=== PATIENT | female | born 1950 | race Caucasian/White ===

== ENCOUNTER 2016-08-10 08:55 | Observation (INO) | payer MEDICARE, OTHER ==
[~2016-08-10] VITALS: Ht 154.9 cm; Wt 98.9 kg
[2016-08-10] MEDS ORDERED: morphine 4 MG/ML VIAL IV STA (09:16)
[2016-08-10] MEDS ORDERED: ONDANSETRON 4 MG INJ IV STA (09:16)
[2016-08-10] MEDS ORDERED: ASPIRIN 325 MG TAB PO STA (09:16)
[2016-08-10] MEDS ORDERED: NITROGLYCERIN 2% 1 GM OINT PKT TD STA (09:16)
[2016-08-10] MEDS ORDERED: ACET-2047 PO (09:29)
[2016-08-10] MEDS ORDERED: ZOLP5TAB PO (09:30)
--- NOTE | 2016-08-10 09:32 | ERA ---
ER Documentation Chief Complaint Date/Time DATE: 08/10/16 TIME: 09:30 Chief Complaint per ems c/p cp HPI This is 66-year-old female with a history of hypertension, COPD, CHF who is in rehab right now at a halfway status post septic shock. The patient says she has never been in this hospital before. Patient states that 330 this morning she developed some substernal chest pressure with radiation into the right jaw. She states she had no shortness of breath palpitations dizziness syncope. Patient states that she has had four cardiac caths that show minimal plaque in her last one was 4 years ago. She says currently her chest pain is minimal. She denies any cough dysuria fever abdominal pain back pain ROS All systems reviewed and are negative except as per history of present illness. Medications Home Meds Reported Medications Magnesium Hydroxide* (Milk Of Magnesia*) 400 Mg/5 Ml Oral.susp, 30 ML PO DAILY Y for HEARTBURN, ML 08/10/16 Lidocaine (Lidoderm) 1 Each Adh..patch, 1 EACH TP DAILY APPLY TO RIGHT KNEE 08/10/16 Vancomycin HCl (Vancomycin HCl) 1 Gm Vial, 1.25 GM IV DAILY, VIAL STARTED 08-07-16 STOP 08-21-16 08/10/16 Sertraline Hcl* (Zoloft*) 100 Mg Tablet, 200 MG PO DAILY, #60 TAB 08/10/16 Ropinirole Hcl* (Ropinirole Hcl*) 1 Mg Tablet, 1 MG PO BID, TAB 08/10/16 Guaifenesin-Dextromethorphan* (Robitussin* DM) 100MG/10MG/5ML Syrup, 5 ML PO Q6H Y for COUGH, ML 08/10/16 Methocarbamol* (Robaxin*) 500 Mg Tab, 500 MG PO Q8, TAB 08/10/16 Prednisone* (Prednisone*) 20 Mg Tab, 20 MG PO BID, TAB 08/10/16 Potassium Chloride* (K-Dur*) 10 Meq Tab.prt.sr, 10 MEQ PO BID, TAB 08/10/16 Famotidine* (Famotidine*) 40 Mg Tablet, 40 MG PO BID, #60 TAB 08/10/16 Oxycodone Hcl* (IR) (Oxycodone Hcl*) 5 Mg Capsule, 5 MG PO Q6 Y for PAIN, CAP 08/10/16 Oxybutynin Chloride* (Ditropan*) 5 Mg Tablet, 5 MG PO TID, TAB 08/10/16 Oxcarbazepine* (Oxcarbazepine*) 600 Mg Tablet, 600 MG PO QHS, TAB 08/10/16 Ondansetron Hcl* (Zofran*) 4 Mg Tablet, 4 MG PO Q6H Y for NAUSEA AND OR VOMITING , TAB 08/10/16 Loperamide Hcl* (Imodium*) 2 Mg Capsule, 2 MG PO Q6H Y for DIARRHEA, CAP MAX 16 mg/day 08/10/16 Ipratropium-Albuterol (Ipratropium-Albuterol) 0.5-3 Mg/3 Ml Ampul.neb, 3 ML INHALATION Q6 Y for WHEEZING AND SOB, #30 VIAL 08/10/16 Lamotrigine* (Lamictal*) 200 Mg Tablet, 200 MG PO BID, TAB 08/10/16 Levothyroxine Sodium* (Levoxyl*) 137 Mcg Tablet, 137 MCG PO BEFORE BREAKFAST, # 30 TAB 08/10/16 Liothyronine Sodium* (Cytomel*) 5 Mcg Tablet, 5 MCG PO DAILY, TAB 08/10/16 Losartan Potassium* (Losartan Potassium*) 50 Mg Tablet, 50 MG PO BID, TAB HOLD IF SBP IS BELOW 110 OR HR BELOW 60 08/10/16 Multivitamins* (Theragran*) 1 Tab Tab, 1 TAB PO DAILY, TAB 08/10/16 Hydrocodone/Acetaminophen ([place] 10-325 Tablet) 1 Each Tablet, 1 EACH PO Q6 Y for PAIN LEVEL 6-10, TAB 08/10/16 Omeprazole* (Omeprazole*) 20 Mg Capsule.dr, 20 MG PO DAILY, #30 CAP 08/10/16 Docusate Sodium* (Docusate Sodium*) 100 Mg Capsule, 100 MG PO BID, #60 CAP 08/10/16 Atorvastatin Calcium* (Atorvastatin Calcium*) 20 Mg Tablet, 20 MG PO QHS, #30 TAB 08/10/16 Fluticasone/Vilanterol (Breo Ellipta 200-25 Mcg INH) 1 Each Blst.w.dev, 1 PUFF INHALATION DAILY, #1 INHALER 08/10/16 Carvedilol* (Carvedilol*) 3.125 Mg Tablet, 3.125 MG PO BID, #60 TAB HLD IF SBP BELOW 110 OR HR BELOW 60 08/10/16 Diphenhydramine Hcl* (Benadryl*) 50 Mg Cap, 50 MG PO Q6 Y for ITCHING, CAP 08/10/16 Lorazepam* (Lorazepam*) 1 Mg Tablet, 1 MG PO TID Y for ANXIETY, #30 TAB GIVEN AT 9 1 AND 5 SEPERATE WITH AMBIEN BY AT LEAST 2 HOURS 08/10/16 Lorazepam* (Lorazepam*) 1 Mg Tablet, 2 MG PO QHS Y for ANXIETY, #30 TAB SEPERATE WITH AMBIEN BY AT LEAST 2 HOURS 08/10/16 Zolpidem Tartrate* (Ambien*) 5 Mg Tablet, 5 MG PO QHS Y for INSOMNIA, #30 TAB 08/10/16 Acetaminophen* (Acetaminophen*) 650 Mg Tablet, 650 MG PO Q4 Y for PAIN AND OR ELEVATED TEMP, #30 TAB MILD PAIN 08/10/16 Allergies Allergies: Coded Allergies: Sulfa (Sulfonamide Antibiotics) (Unverified Allergy, Unknown, 08/10/16) phenobarbital (Verified Allergy, Unknown, 08/10/16) Uncoded Allergies: PLASTIC TAPE (Allergy, Unknown, 08/10/16) PMhx/Soc Medical and Surgical Hx: pt denies Surgical Hx Smoking Status: Never smoker FmHx Family History: No coronary disease Physical Exam Vitals Vital Signs Date Time Temp Pulse Resp B/P Pulse Ox O2 Delivery O2 Flow Rate FiO2 08/10/16 11:23 53 20 121/53 99 Nasal Cannula 3.0 08/10/16 09:31 Nasal Cannula 2 08/10/16 09:07 97.8 62 20 157/84 99 Physical Exam Const: Well-developed, well-nourished Head: Atraumatic, normocephalic Eyes: Normal Conjunctiva, PERRLA, EOMI, normal sclera, no nystagmus ENT: Normal External Ears, Nose and Mouth, moist mucus membranes. Neck: Full range of motion. No meningismus, no lymphadenopathy. Resp: Clear to auscultation bilaterally, no wheezing, rhonchi, rales Cardio: Regular rate and rhythm, no murmurs, S1 S2 present, there is bilateral parasternal chest wall tenderness to palpation however the patient states this is not the same pain Abd: Soft, non tender x 4, non distended. Normal bowel sounds, no guarding or rebound, no pulsitile abdominal masses or bruits Skin: No petechiae or rashes, no ecchymosis , no maculopapular rash Back: No midline or flank tenderness Ext: No cyanosis, or edema, FROM x 4, normal inspection, neurovascularly intact x 4 Neur: Awake and alert, STR 5/5 x 4, sensation intact x 4, no focal findings, cerebellum intact Psych: Normal Mood and Affect Result Diagram: 08/10/1692408/10/16924 Results 24 hrs Laboratory Tests Test 08/10/16 09:25 White Blood Count 8.010^3/ul Red Blood Count 3.3110^6/ul Hemoglobin 9.7g/dl Hematocrit 31.4% Mean Corpuscular Volume 94.9fl Mean Corpuscular Hemoglobin 29.3pg Mean Corpuscular Hemoglobin Concent 30.9g/dl Red Cell Distribution Width 14.3% Platelet Count 33571^3/UL Mean Platelet Volume 10.0fl Neutrophils % 69.9% Lymphocytes % 20.1% Monocytes % 8.3% Eosinophils % 0.8% Basophils % 0.4% Nucleated Red Blood Cells % 0.0/100WBC Neutrophils # 5.610^3/ul Lymphocytes # 1.610^3/ul Monocytes # 0.710^3/ul Eosinophils # 0.110^3/ul Basophils # 0.010^3/ul Nucleated Red Blood Cells # 0.010^3/ul Prothrombin Time 12.8Sec Prothrombin Time Ratio 1.0 INR International Normalized Ratio 0.96 Activated Partial Thromboplast Time 30.5Sec Sodium Level 143mmol/L Potassium Level 4.3mmol/L Chloride Level 115mmol/L Carbon Dioxide Level 29mmol/L Anion Gap 3 Blood Urea Nitrogen 22mg/dl Creatinine 0.74mg/dl Glucose Level 99mg/dl Calcium Level 8.5mg/dl Total Bilirubin 0.0mg/dl Direct Bilirubin 0.00mg/dl Indirect Bilirubin 0.0mg/dl Aspartate Amino Transf (AST/SGOT) 24IU/L Alanine Aminotransferase (ALT/SGPT) 48IU/L Alkaline Phosphatase 60IU/L Troponin I < 0.012ng/ml B-Type Natriuretic Peptide 1070PG/ML Total Protein 5.7g/dl Albumin 3.8g/dl Globulin 1.90g/dl Albumin/Globulin Ratio 2.00 Current Medications Medications (Trade) Dose Ordered Sig/Eliazar Route PRN Reason Start Time Stop Time Status Last Admin Dose Admin Aspirin (Aspirin) 325 mg ONCE STAT PO 08/10/16 09:16 08/10/16 09:18 DC 08/10/16 09:39 Nitroglycerin (Nitroglycerin 2% Oint) 1 inch ONCE STAT TD 08/10/16 09:16 08/10/16 09:18 DC 08/10/16 09:39 Morphine Sulfate (morphine) 4 mg ONCE STAT IV 08/10/16 09:16 08/10/16 09:18 DC 08/10/16 09:40 Ondansetron HCl (Zofran Inj) 4 mg ONCE STAT IV 08/10/16 09:16 08/10/16 09:18 DC 08/10/16 09:40 Procedures/MDM EKG: Rate/Rhythm: Normal Sinus Rhythm,NL intervals QRS, ST, QT: NORMAL KS, QRS, QT] Impression: NORMAL EKG PROCEDURE: XR Chest. CLINICAL INDICATION: Chest pain TECHNIQUE: Single frontal view of the chest was obtained COMPARISON: None FINDINGS: The heart is enlarged. The thoracic aorta is calcified. There is a left-sided PICC line in place with its tip overlying the cavoatrial junction. There is increased right paratracheal density in the right upper lung which may be secondary to tortuous vessels, however a mass is not excluded. There is no pleural effusion or pneumothorax. RPTAT: AA IMPRESSION: Mild cardiomegaly. Calcified aorta consistent with atherosclerotic disease. Increased right paratracheal density is likely secondary to tortuous vessels, however a mass is not excluded and a CT chest is recommended for further evaluation. A call report was made and the findings discussed with Erasmo Palumbo at 08/10/2016 9:48:25 AM. .Александр Styels MD, Date Time Electronically viewed and signed by .Александр Styles MD, on 08/10/2016 09: 51 .S/ CC: ERASMO RUSH DO Patient's symptoms are concerning for cardiac cause will require inpatient workup and continuous monitoring. Further w/u for ischemia, arrhythmia, PE or dissection will be deferred to the inpatient team. Accepting Care Team: Current data and ongoing care discussed. Time: Time of admission Primary Provider: [XOXOXO] Consulting: [XOXOXO] Outstanding Data: none Departure Diagnosis: Primary Impression: Chest pain Qualified Code: R07.9 - Chest pain, unspecified type Condition: Stable ERASMO RUSH DO August 10, 2016 09:32
[2016-08-10 09:34] LABS: ADD SCAN DIFF NO
[2016-08-10] MEDS ORDERED: BEN50 PO (09:35)
[2016-08-10] MEDS ORDERED: LORA1TAB PO ×2 (09:35)
[2016-08-10 09:36] LABS: BASOPHILS % 0.4 % (0.0-2.0); EOSINOPHILS # 0.1 10^3/ul (0.0-0.5); EOSINOPHILS % 0.8 % (0.0-7.0); HEMATOCRIT 31.4 % (37.0-47.0); HEMOGLOBIN 9.7 g/dl (12.0-16.0); LYMPHOCYTES # 1.6 10^3/ul (0.8-2.9); LYMPHOCYTES % 20.1 % (15.0-51.0); MEAN CORPUSCULAR HEMOGLOBIN 29.3 pg (29.0-33.0); MEAN CORPUSCULAR HGB CONC 30.9 g/dl (32.0-37.0); MEAN CORPUSCULAR VOLUME 94.9 fl (82.0-101.0); MONOCYTE # 0.7 10^3/ul (0.3-0.9); MONOCYTES % 8.3 % (0.0-11.0); NEUTROPHIL # 5.6 10^3/ul (1.6-7.5); NEUTROPHILS % 69.9 % (39.0-77.0); PLATELET COUNT 220 10^3/UL (140-415); RED BLOOD COUNT 3.31 10^6/ul (4.20-5.40); RED CELL DISTRIBUTION WIDTH 14.3 % (11.5-14.5)
[2016-08-10] MEDS ORDERED: CARV3.1260 PO (09:37)
[2016-08-10] MEDS ORDERED: FLUT1BLS INHALATION (09:37)
[2016-08-10] MEDS ORDERED: ATOR20TA38 PO (09:37)
[2016-08-10] MEDS ORDERED: DOCU-159 PO (09:38)
[2016-08-10] MEDS ORDERED: OMEP20CA16 PO (09:39)
[2016-08-10] MEDS ORDERED: HYDR-902 PO (09:39)
[2016-08-10] MEDS ORDERED: MULTI PO (09:40)
[2016-08-10] MEDS ORDERED: LIOT5TAB3 PO (09:41)
[2016-08-10] MEDS ORDERED: LOSA50TA6 PO (09:41)
[2016-08-10] MEDS ORDERED: LEVO137T26 PO (09:42)
[2016-08-10] MEDS ORDERED: LAMO200T18 PO (09:43)
[2016-08-10] MEDS ORDERED: IPRA3AMP INHALATION (09:43)
[2016-08-10] MEDS ORDERED: LOPE2CAP PO (09:44)
[2016-08-10] MEDS ORDERED: ONDA4TAB8 PO (09:45)
[2016-08-10] MEDS ORDERED: OXCA600T30 PO (09:46)
[2016-08-10] MEDS ORDERED: OXYB5TAB7 PO (09:46)
[2016-08-10] MEDS ORDERED: FAMO40TA52 PO (09:47)
[2016-08-10] MEDS ORDERED: OXYC5CAP17 PO (09:47)
[2016-08-10] MEDS ORDERED: POTA10TA37 PO (09:48)
[2016-08-10] MEDS ORDERED: PRED20TA PO (09:49)
[2016-08-10] MEDS ORDERED: METH500T PO (09:49)
[2016-08-10] MEDS ORDERED: UDROBDM PO (09:50)
[2016-08-10] MEDS ORDERED: ROPI1TAB PO (09:50)
[2016-08-10] MEDS ORDERED: SERT100T PO (09:51)
--- NOTE | 2016-08-10 09:51 | RADRPT ---
PROCEDURE: XR Chest. CLINICAL INDICATION: Chest pain TECHNIQUE: Single frontal view of the chest was obtained COMPARISON: None FINDINGS: The heart is enlarged. The thoracic aorta is calcified. There is a left-sided PICC line in place with its tip overlying the cavoatrial junction. There is increased right paratracheal density in the right upper lung which may be secondary to tort uous vessels, however a mass is not excluded. There is no pleural effusion or pneumothorax. RPTAT: AA IMPRESSION: Mild cardiomegaly. Calcified aorta consistent with atherosclerotic disease. Increased right paratracheal density is likely secondary to tortuous vessels, however a mass is not excluded and a CT chest is recommended for further evaluation. A call report was made and the findings discussed with Erasmo Palumbo at 08/10/2016 9:48:25 AM. .Александр Styles MD, Date Time Electronically viewed and signed by .Александр Styles MD, on 08/10/2016 09:51 .S/
[2016-08-10] MEDS ORDERED: VANC1VIA2 IV (09:53)
[2016-08-10] MEDS ORDERED: LIDO700A6 TP (09:56)
[2016-08-10] MEDS ORDERED: MAGN400O4 PO (09:57)
[2016-08-10 09:58] LABS: ALBUMIN 3.8 g/dl (3.3-4.9); CHLORIDE 115 mmol/L (97-110)
[2016-08-10 09:59] LABS: INR 0.96; POTASSIUM 4.3 mmol/L (3.5-5.1); PROTIME 12.8 Sec (12.2-14.2); SODIUM 143 mmol/L (135-144)
[2016-08-10 10:00] LABS: PARTIAL THROMBOPLASTIN TIME 30.5 Sec (25.0-35.0)
[2016-08-10 10:01] LABS: ANION GAP 3 (8-16); ASPARTATE AMINO TRANSFERASE 24 IU/L (15-46); BLOOD UREA NITROGEN 22 mg/dl (7-20); CARBON DIOXIDE 29 mmol/L (21-31); CREATININE 0.74 mg/dl (0.44-1.00); TOTAL PROTEIN 5.7 g/dl (6.1-8.1)
[2016-08-10 10:02] LABS: ALANINE AMINOTRANSFERASE 48 IU/L (13-69); ALKALINE PHOSPHATASE 60 IU/L (42-121); CALCIUM 8.5 mg/dl (8.4-10.2); GLUCOSE 99 mg/dl (70-220)
[2016-08-10 10:10] LABS: B-TYPE NATRIURETIC PEPTIDE 1070 PG/ML (0-125)
[2016-08-10 10:15] LABS: TROPONIN-I < 0.012 ng/ml (0.00-0.12)
[2016-08-10] MEDS ORDERED: ONDANSETRON 4 MG INJ IV PRN (12:00)
[2016-08-10] MEDS ORDERED: ACETAMINOPHEN 325 MG TAB PO PRN ×2 (12:00→17:00)
[2016-08-10 15:38] VITALS: BP 158/88; RESP 18
[2016-08-10 16:00] VITALS: BP 158/84; PULSE 65; Ht 154.9 cm; Wt 98.9 kg
[2016-08-10 16:32] VITALS: PULSE 62
--- NOTE | 2016-08-10 16:38 | HP ---
Date/Time of Note Date/Time of Note DATE: 08/10/16 TIME: 16:25 Assessment/Plan VTE Prophylaxis VTE Prophylaxis Intervention: LMWH Lines/Catheters IV [facility]atheter Type (from [facility]): Saline Lock Assessment/Plan Assessment/Plan 66-year-old female who was sent to us from long-term facility for chest pain workup 1. Chest pain rule out acute coronary syndrome 2 Coronary artery disease status post cardiac cath 4 in the past. 3. Abnormal density on chest x-ray concerning for pulmonary mass 4. Hypertension suboptimal control 5. Hypothyroidism 6. Dyslipidemia 7. History of Parkinson's 8. 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 Bipolar depression with severe anxiety 10. Recent diagnosis of sepsis with bacteremia from tarzana on IV Vanco Plan: * Admit patient to telemetry floor/rule out ACS with 3 sets of cardiac enzymes/ cardiology consultation/2D echo * Chest CT to evaluate lung mass/possible pulmonary consultation. * Resume previous medications for comorbidities and titrates regimen for good control * Serial labs and medication adjustment as needed * Supportive care with a low-cholesterol low-fat diet antiemetics and antipyretics as needed. Further interventions per clinical course Prophylaxis with Lovenox and PPI. HPI/ROS Admit Date/Time Admit Date/Time August 10, 2016 at 11:57 Hx of Present Illness PRESENTING COMPLAINT: chest pain HISTORY OF PRESENTING COMPLAINT: This is 66-year-old female with a history of hypertension, COPD, CHF who is in rehab right now at a long term status post septic shock. The patient says she has never been in this hospital before. Patient states that 330 this morning she developed some substernal chest pressure with radiation into the right jaw. She states she had no shortness of breath palpitations dizziness syncope. Patient states that she has had four cardiac caths that show minimal plaque in her last one was 4 years ago. She says currently her chest pain is minimal. She denies any cough dysuria fever abdominal pain back pain ROS ROS: CONSTITUTIONAL: denies fever, chills, weight loss, weight gain HEENT: denies headaches, any vertigo, any sore throat or rhinorrhea. Eyes: No double or blurred vision or eye pain. GASTROINTESTINAL: The patient denies any nausea, vomiting, diarrhea or abdominal pain. GENITOURINARY: denies dysuria, frequency, urgency or hematuria. MUSCULOSKELETAL: also denies myalgias, arthralgias or edema. SKIN: denies rash or jaundice NEUROLOGIC: denies weakness, dizziness, focal neurological change or headache. PSYCHIATRIC: denies history of depression in the past, any suicidal ideation. substance abuse. ENDOCRINE: denies polyuria, polydipsia or hot or cold intolerance. HEMATOLOGIC: denies history of easy bruising, anemia or eczema. PMH/Family/Social Past Medical History 1. Depression 2 hypothyroidism 3. Hypertension 4. Dyslipidemia 5. Anxiety 6. Seizures 7. Chronic arthritis 8. Parkinson's 9. Selective IgG deficiency 10. CHF 11. Bipolar depression 12. Recent diagnosis of sepsis 13. COPD 14. Chronic debility Family History Significant Family History: no pertinent family hx Social History Came from a long-term facility Alcohol Use: none Smoking Status: Never smoker Drug Use: none Exam/Review of Systems Vital Signs Vitals Vital Signs Date Time Temp Pulse Resp B/P Pulse Ox O2 Delivery O2 Flow Rate FiO2 08/10/16 15:38 98.7 65 18 158/88 94 08/10/16 14:38 Nasal Cannula 3.0 Exam Exam GENERAL: Patient is alert, oriented x 3, in no apparent distress; obese. Patient appears calm and comfortable and is able to follow commands. HEENT: Oropharynx is clear. There is no carotid bruit, no masses. Patient's pupils are equal, round and reactive to light bilaterally. Extraocular motions are intact. There is no scleral icterus. There is no facial asymmetry. NECK: Supple. LUNGS: Clear to auscultation bilaterally with good air entry. No Wheezes or crackles. HEART: S1, S2. No murmur, gallops or rubs. Regular rate and rhythm. ABDOMEN: Soft, nontender. Normoactive bowel sounds. There are no stigmata of chronic liver disease. BACK: no costovertebral angle tenderness. GENITOURINARY: Deferred. EXTREMITIES: No edema. There is no cyanosis, clubbing. There are 2+ pulses bilaterally distally. NEUROLOGIC: The patient has no lateralizing signs. Cranial nerves II-XII are intact. SKIN: Otherwise, unremarkable. Labs Result Diagram: 08/10/1692408/10/16924 Procedures Procedures Laboratory Tests Test 08/10/16 09:25 White Blood Count 8.010^3/ul Red Blood Count 3.3110^6/ul Hemoglobin 9.7g/dl Hematocrit 31.4% Mean Corpuscular Volume 94.9fl Mean Corpuscular Hemoglobin 29.3pg Mean Corpuscular Hemoglobin Concent 30.9g/dl Red Cell Distribution Width 14.3% Platelet Count 12557^3/UL Mean Platelet Volume 10.0fl Neutrophils % 69.9% Lymphocytes % 20.1% Monocytes % 8.3% Eosinophils % 0.8% Basophils % 0.4% Nucleated Red Blood Cells % 0.0/100WBC Neutrophils # 5.610^3/ul Lymphocytes # 1.610^3/ul Monocytes # 0.710^3/ul Eosinophils # 0.110^3/ul Basophils # 0.010^3/ul Nucleated Red Blood Cells # 0.010^3/ul Prothrombin Time 12.8Sec Prothrombin Time Ratio 1.0 INR International Normalized Ratio 0.96 Activated Partial Thromboplast Time 30.5Sec Sodium Level 143mmol/L Potassium Level 4.3mmol/L Chloride Level 115mmol/L Carbon Dioxide Level 29mmol/L Anion Gap 3 Blood Urea Nitrogen 22mg/dl Creatinine 0.74mg/dl Glucose Level 99mg/dl Calcium Level 8.5mg/dl Total Bilirubin 0.0mg/dl Direct Bilirubin 0.00mg/dl Indirect Bilirubin 0.0mg/dl Aspartate Amino Transf (AST/SGOT) 24IU/L Alanine Aminotransferase (ALT/SGPT) 48IU/L Alkaline Phosphatase 60IU/L Troponin I < 0.012ng/ml B-Type Natriuretic Peptide 1070PG/ML Total Protein 5.7g/dl Albumin 3.8g/dl Globulin 1.90g/dl Albumin/Globulin Ratio 2.00 Current Medications Medications (Trade) Dose Ordered Sig/Eliazar Route PRN Reason Start Time Stop Time Status Last Admin Dose Admin Aspirin (Aspirin) 325 mg ONCE STAT PO 08/10/16 09:16 08/10/16 09:18 DC 08/10/16 09:39 325 MG Nitroglycerin (Nitroglycerin 2% Oint) 1 inch ONCE STAT TD 08/10/16 09:16 08/10/16 09:18 DC 08/10/16 09:39 1 INCH Morphine Sulfate (morphine) 4 mg ONCE STAT IV 08/10/16 09:16 08/10/16 09:18 DC 08/10/16 09:40 4 MG Ondansetron HCl (Zofran Inj) 4 mg ONCE STAT IV 08/10/16 09:16 08/10/16 09:18 DC 08/10/16 09:40 4 MG Ondansetron HCl (Zofran Inj) 4 mg ER BRIDGE PRN IV NAUSEA AND/OR VOMITING 08/10/16 12:00 08/11/16 11:59 Acetaminophen (Tylenol Tab) 650 mg ER BRIDGE PRN PO MILD PAIN/FEVER 08/10/16 12:00 08/11/16 11:59 PROCEDURE: CT Brain without contrast. 10/02/2014. 1040 hours. CLINICAL INDICATION: Loss of balance and dizziness. TECHNIQUE: A CT of the brain without contrast was performed utilizing axial sections from the skull base through the vertex. The patient was scanned without intravenous contrast enhancement. Total exam DLP is 591.98 mGy-cm. CTDIvol is 41.97 mGy. COMPARISON: None available FINDINGS: There is normal villagran-white matter differentiation. There is mild enlargement of the ventricles and subarachnoid spaces consistent with atrophy. Vascular calcifications are present consistent with atherosclerosis. There is no intracranial hemorrhage or space-occupying lesion. There is no skull fracture or lytic lesion. IMPRESSION: 1. Mild atrophy. 2. Atherosclerosis. 3. Otherwise normal noncontrast CT scan of the brain. 4. If there is clinical concern regarding a posterior fossa lesion, further evaluation with MRI should be considered. RPTAT: QQ .Brian Panda, Date Time Electronically viewed and signed by .Brian Panda, on 10/02/2014 10:55 .R/ CC: MARCIAL AMANDA PROCEDURE: XR Chest. CLINICAL INDICATION: Chest pain TECHNIQUE: Single frontal view of the chest was obtained COMPARISON: None FINDINGS: The heart is enlarged. The thoracic aorta is calcified. There is a left-sided PICC line in place with its tip overlying the cavoatrial junction. There is increased right paratracheal density in the right upper lung which may be secondary to tortuous vessels, however a mass is not excluded. There is no pleural effusion or pneumothorax. RPTAT: AA IMPRESSION: Mild cardiomegaly. Calcified aorta consistent with atherosclerotic disease. Increased right paratracheal density is likely secondary to tortuous vessels, however a mass is not excluded and a CT chest is recommended for further evaluation. A call report was made and the findings discussed with Erasmo Palumbo at 08/10/2016 9:48:25 AM. .Александр Styles MD, MD Date Time Electronically viewed and signed by .Александр Styles MD, MD on 08/10/2016 09: 51 .S/ CC: ERASMO RUSH DO I reviewed EKG Rate: Within normal limits Rhythm: sinus Note: No ST elevation or depressions noted concerning for acute ischemic event. GARRICK BENDER August 10, 2016 16:35
[2016-08-10] MEDS ORDERED: oxyCODONE 5 MG TAB PO PRN (17:00)
[2016-08-10] MEDS ORDERED: VILANTEROL XX SCH (17:00)
[2016-08-10] MEDS ORDERED: MAGNESIUM HYDROXIDE 30ML CUP PO PRN (17:00)
[2016-08-10] MEDS ORDERED: FLUTICASONE XX SCH (17:00)
[2016-08-10] MEDS ORDERED: ALBUTEROL/IPRATROPIUM (NEB) 3 ML AMP INH PRN (17:00)
[2016-08-10] MEDS ORDERED: VANCOMYCIN 1 GM/250 ML BAG IVPB SCH (17:30)
[2016-08-10] MEDS ORDERED: VANCOMYCIN IV PER PHARMACY XX SCH (17:30)
[2016-08-10] MEDS ORDERED: HYDROCODONE/APAP (7.5/325) TAB PO PRN ×2 (17:30→18:00)
[2016-08-10] MEDS ORDERED: VANCOMYCIN 2 GM in SOD CHLORIDE 0.9% 500 ML IVPB SCH (19:00)
[2016-08-10 20:04] VITALS: BP 110/55; RESP 18
[2016-08-10 20:22] VITALS: PULSE 70
[2016-08-10 20:45] LABS: CREATINE KINASE 35 IU/L (23-200)
[2016-08-10 20:58] LABS: CK-MB 0.52 ng/ml (0.0-2.4)
[2016-08-10 21:00] LABS: TROPONIN-I < 0.012 ng/ml (0.00-0.12)
[2016-08-10] MEDS: morphine 2 MG INJ IV PRN (21:09)
[2016-08-10] MEDS: ONDANSETRON 4 MG INJ IV PRN (21:09)
[2016-08-10] MEDS: OXCARBAZEPINE 300 MG TAB PO SCH (21:11)
[2016-08-10] MEDS: OXYBUTYNIN 5 MG TAB PO SCH (21:11)
[2016-08-10] MEDS: LAMOTRIGINE 100 MG TAB PO SCH (21:12)
[2016-08-10] MEDS: ATORVASTATIN 20 MG TAB PO SCH (21:12)
[2016-08-10] MEDS: DOCUSATE SODIUM 100 MG CAP PO SCH (21:12)
[2016-08-10] MEDS: predniSONE 20 MG TAB PO SCH (21:12)
[2016-08-10] MEDS: ROPINIROLE 1 MG TAB PO SCH (21:12)
[2016-08-10] MEDS: LOSARTAN 50 MG TAB PO SCH (21:13)
[2016-08-10] MEDS: SALMETEROL/FLUTICASONE 250/50 INHA INH SCH (21:13)
[2016-08-10] MEDS: ZOLPIDEM 5 MG TAB PO PRN (22:53)
[2016-08-10] MEDS: METHOCARBAMOL 500 MG TAB PO SCH (22:53)
[2016-08-10] MEDS: LORAZEPAM 1 MG TAB PO PRN (22:53)
[2016-08-10] MEDS: DIPHENHYDRAMINE 50 MG CAP PO PRN (22:53)
[2016-08-11] VITALS (12 sets, daily range): BP systolic 112–158; BP diastolic 55–77; PULSE 62–72; RESP 18–20
[2016-08-11] MEDS: morphine 2 MG INJ IV PRN ×4 (02:10→17:27)
[2016-08-11 04:05] LABS: ADD UMIC YES; URINE BILIRUBIN (Dip) NEGATIVE (NEGATIVE); URINE BLOOD (Dip) NEGATIVE (NEGATIVE); URINE COLOR LT. YELLOW (YELLOW); URINE GLUCOSE (Dip) NEGATIVE (NEGATIVE); URINE KETONES (Dip) NEGATIVE (NEGATIVE); URINE LEUKOCYTE ESTERASE (Dip) NEGATIVE (NEGATIVE); URINE NITRITE (Dip) POSITIVE (NEGATIVE); URINE TOTAL PROTEIN (Dip) NEGATIVE (NEGATIVE); URINE UROBILINOGEN (Dip) 0.2 E.U./dL (0.1-1.0)
[2016-08-11 04:25] LABS: ADD SCAN DIFF NO
[2016-08-11 04:27] LABS: BASOPHILS % 0.2 % (0.0-2.0); EOSINOPHILS % 0.2 % (0.0-7.0); HEMATOCRIT 29.8 % (37.0-47.0); HEMOGLOBIN 9.4 g/dl (12.0-16.0); LYMPHOCYTES # 1.2 10^3/ul (0.8-2.9); LYMPHOCYTES % 14.9 % (15.0-51.0); MEAN CORPUSCULAR HEMOGLOBIN 29.8 pg (29.0-33.0); MEAN CORPUSCULAR HGB CONC 31.5 g/dl (32.0-37.0); MEAN CORPUSCULAR VOLUME 94.6 fl (82.0-101.0); MEAN PLATELET VOLUME 10.3 fl (7.4-10.4); MONOCYTE # 0.5 10^3/ul (0.3-0.9); MONOCYTES % 6.4 % (0.0-11.0); NEUTROPHIL # 6.5 10^3/ul (1.6-7.5); NEUTROPHILS % 77.7 % (39.0-77.0); PLATELET COUNT 218 10^3/UL (140-415); RED BLOOD COUNT 3.15 10^6/ul (4.20-5.40); RED CELL DISTRIBUTION WIDTH 14.4 % (11.5-14.5); WHITE BLOOD COUNT 8.3 10^3/ul (4.8-10.8)
[2016-08-11 04:47] LABS: INR 0.96; PROTIME 12.8 Sec (12.2-14.2)
[2016-08-11 04:48] LABS: PARTIAL THROMBOPLASTIN TIME 30.1 Sec (25.0-35.0)
[2016-08-11 04:54] LABS: BACTERIA,URINE MANY; SQUAMOUS EPITHELIAL CELL,UR OCCASIONAL
[2016-08-11 04:56] LABS: IRON 49 ug/dl (35-150)
[2016-08-11 04:58] LABS: CREATINE KINASE 32 IU/L (23-200)
[2016-08-11 05:00] LABS: ALBUMIN 3.5 g/dl (3.3-4.9); BILIRUBIN,INDIRECT 0.1 mg/dl (0-1.1); BILIRUBIN,TOTAL 0.1 mg/dl (0.2-1.3); CALCIUM 8.8 mg/dl (8.4-10.2); CHOL/HDL RATIO 2.1 RATIO; CREATININE 0.69 mg/dl (0.44-1.00); POTASSIUM 4.4 mmol/L (3.5-5.1); TOTAL PROTEIN 5.5 g/dl (6.1-8.1)
[2016-08-11 05:05] LABS: TOTAL IRON BINDING CAPACITY 318 ug/dl (241-421)
[2016-08-11 05:08] LABS: CK-MB 0.47 ng/ml (0.0-2.4)
[2016-08-11 05:19] LABS: TROPONIN-I < 0.012 ng/ml (0.00-0.12)
[2016-08-11 05:29] LABS: THYROID STIMULATING HORMONE 1.44 MIU/L (0.465-4.680)
[2016-08-11] MEDS: PANTOPRAZOLE (EC) 40 MG TAB PO SCH (05:37)
[2016-08-11] MEDS: DIPHENHYDRAMINE 50 MG CAP PO PRN ×2 (05:37→23:42)
[2016-08-11] MEDS: METHOCARBAMOL 500 MG TAB PO SCH ×3 (05:37→21:37)
[2016-08-11 06:04] LABS: FOLATE 6.7 ng/ml (2.8-20.0)
[2016-08-11] MEDS: LEVOTHYROXINE 137 MCG TAB PO SCH (06:27)
[2016-08-11] MEDS ORDERED: VANCOMYCIN 1 GM in NS 250 ML IVPB SCH (07:00)
[2016-08-11] MEDS: ONDANSETRON 4 MG INJ IV PRN (07:02)
[2016-08-11] MEDS ORDERED: NON-FORMULARY/PATIENT OWN MED (Fluticasone/Vilanterol (Breo Ellipta 200-25 Mcg INH) 1 PUFF XX SCH (09:00)
--- NOTE | 2016-08-11 09:19 | CONS ---
Date/Time of Note Date/Time of Note DATE: 08/11/16 TIME: 09:10 Assessment/Plan Assessment/Plan Chief Complaint/Hosp Course Chest pain: Possibly cardiac but this is a chronic symptom which has been evaluated previously with 3 cardiac caths all showing nonobstructive CAD and "small vessel disease". A component of vasospasm is also possible. No objective e/o ischemia such as EKG changes or trop elevation. She does have an murmur but doubt very significant. I think a trial of imdur is a good start. 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 Nonobstructive CAD: per report based on prior caths Chronic diastolic heart failure: compensated COPD HTN IgG deficiency -start imdur 30mg -if feasible, transfer to [place] where all her specialists are -continue ASA, statin -coreg, lisinopril Problems: Consultation Date/Type/Reason Admit Date/Time August 10, 2016 at 11:57 Date of Consultation: Aug 11, 2016 Type of Consultation: Cardiology Reason for Consultation Chest pain Referring Provider: GARRICK BENDER Hx of Present Illness 66 yo F with a h/o chronic angina with 3 cardiac caths showing "small vessel disease" per pt, CHF, COPD, IgG deficiency, recent hospitalization at [facility] for sepsis from her portacath site infection, who presented from [facility] with chest pain. Pt notes that she has been dealing with this chest pain for many years now and last had a cardiac cath ~4 yrs ago which was again normal. She gets this episodes sporadically but recently has had more frequent episodes. She describes them as pressure like pain with associated SOB. The symptoms usually last a few seconds or minutes and are relieved when she tries relaxation techniques. She thinks it may be related to her autoimmune disease. She would like to go back to [facility] where all her doctors are including cardiology and heme/onc. No orthopnea, PND, edema. per HPI Social History Alcohol Use: none Smoking Status: Never smoker Drug Use: none Exam/Review of Systems Vital Signs Vitals Vital Signs Date Time Temp Pulse Resp B/P Pulse Ox O2 Delivery O2 Flow Rate FiO2 08/11/16 08:24 65 08/11/16 07:49 98.1 18 131/77 96 08/10/16 16:00 Room Air 08/10/16 14:38 3.0 Intake and Output 08/10/16 08/10/16 08/11/16 15:00 23:00 07:00 Intake Total 1110 ml 150 ml Balance 1110 ml 150 ml Exam Constitutional: alert, oriented Psych: other (tearful) Head: atraumatic, normocephalic Neck: No jvd Respiratory: clear to auscultation, No crackles/rales Cardiovascular: edema, regular rate and rhythm, systolic murmur (2/6 ROHITH) Gastrointestinal: soft, No non-tender Neurological: nl mental status, nl speech Additional Comments EKG: sinus, no ST changes Results Result Diagram: 08/11/16 0400 08/11/16 0400 Results 24 hrs Laboratory Tests Test 08/10/16 09:25 08/10/16 20:17 08/11/16 03:00 08/11/16 04:00 White Blood Count 8.0 8.3 Red Blood Count 3.31 L 3.15 L Hemoglobin 9.7 L 9.4 L Hematocrit 31.4 L 29.8 L Mean Corpuscular Volume 94.9 94.6 Mean Corpuscular Hemoglobin 29.3 29.8 Mean Corpuscular Hemoglobin Concent 30.9 L 31.5 L Red Cell Distribution Width 14.3 14.4 Platelet Count 220 218 Mean Platelet Volume 10.0 10.3 Neutrophils % 69.9 77.7 H Lymphocytes % 20.1 14.9 L Monocytes % 8.3 6.4 Eosinophils % 0.8 0.2 Basophils % 0.4 0.2 Nucleated Red Blood Cells % 0.0 0.0 Neutrophils # 5.6 6.5 Lymphocytes # 1.6 1.2 Monocytes # 0.7 0.5 Eosinophils # 0.1 0.0 Basophils # 0.0 0.0 Nucleated Red Blood Cells # 0.0 0.0 Prothrombin Time 12.8 12.8 Prothrombin Time Ratio 1.0 1.0 INR International Normalized Ratio 0.96 0.96 Activated Partial Thromboplast Time 30.5 30.1 Sodium Level 143 136 Potassium Level 4.3 4.4 Chloride Level 115 H 105 # Carbon Dioxide Level 29 28 Anion Gap 3 L 7 L Blood Urea Nitrogen 22 H 17 Creatinine 0.74 0.69 Glucose Level 99 132 Calcium Level 8.5 8.8 Total Bilirubin 0.0 L 0.1 L Direct Bilirubin 0.00 0.00 Indirect Bilirubin 0.0 0.1 Aspartate Amino Transf (AST/SGOT) 24 31 Alanine Aminotransferase (ALT/SGPT) 48 56 Alkaline Phosphatase 60 56 Troponin I < 0.012 < 0.012 < 0.012 B-Type Natriuretic Peptide 1070 H Total Protein 5.7 L 5.5 L Albumin 3.8 3.5 Globulin 1.90 Albumin/Globulin Ratio 2.00 Creatine Kinase 35 32 Creatine Kinase Index 1.5 1.5 Creatinine Kinase MB (Mass) 0.52 0.47 Urine Color LT. YELLOW Urine Clarity CLEAR Urine pH 6.5 Urine Specific [place] 1.025 Urine Ketones NEGATIVE Urine Nitrite POSITIVE H Urine Bilirubin NEGATIVE Urine Urobilinogen 0.2 E.U./dL Urine Leukocyte Esterase NEGATIVE Urine Microscopic RBC 2-5 Urine Microscopic WBC 0-2 Urine Squamous Epithelial Cells OCCASIONAL Urine Bacteria MANY Urine Hemoglobin NEGATIVE Urine Glucose NEGATIVE Urine Total Protein NEGATIVE Hemoglobin A1c 5.2 Magnesium Level 2.0 Iron Level 49 Total Iron Binding Capacity 318 Percent Iron Saturation 15 L Triglycerides Level 73 Cholesterol Level 160 LDL Cholesterol, Calculated 72 HDL Cholesterol 73 Cholesterol/HDL Ratio 2.1 Vitamin B12 Level 179 L Folate 6.7 Thyroid Stimulating Hormone (TSH) 1.440 Medications Medications Current Medications Acetaminophen (Tylenol Tab) 650 mg Q4 PRN PO PAIN AND OR ELEVATED TEMP; Start 08/10/16 at 17:00 Atorvastatin Calcium (Lipitor) 20 mg QHS PO Last administered on 08/10/16 21: 12; Admin Dose 20 MG; Start 08/10/16 at 21:00 Carvedilol (Coreg) 3.125 mg BID PO Last administered on 08/10/16 21:13; Admin Dose 3.125 MG; Start 08/10/16 at 21:00 Docusate Sodium (Colace) 100 mg BID PO Last administered on 08/10/16 21:12; Admin Dose 100 MG; Start 08/10/16 at 21:00 Lamotrigine (Lamictal) 200 mg BID PO Last administered on 08/10/16 21:12; Admin Dose 200 MG; Start 08/10/16 at 21:00 Lidocaine (Lidoderm) 1 patch DAILY TD ; Start 08/11/16 at 09:00 Liothyronine Sodium (Cytomel) 5 mcg DAILY PO ; Start 08/11/16 at 09:00 Lorazepam (Ativan) 1 mg TID PRN PO ANXIETY; Start 08/10/16 at 17:00 Losartan Potassium (Cozaar) 50 mg BID PO Last administered on 08/10/16 21:13; Admin Dose 50 MG; Start 08/10/16 at 21:00 Magnesium Hydroxide (Milk Of Mag) 30 ml DAILY PRN PO HEARTBURN; Start 08/10/16 at 17:00 Methocarbamol (Robaxin) 500 mg Q8 PO Last administered on 08/11/16 05:37; Admin Dose 500 MG; Start 08/10/16 at 22:00 Multivitamins Therapeutic (Theragran) 1 tab DAILY PO ; Start 08/11/16 at 09:00 Oxcarbazepine (Trileptal) 600 mg QHS PO Last administered on 08/10/16 21:11; Admin Dose 600 MG; Start 08/10/16 at 21:00 Oxybutynin Chloride (Ditropan) 5 mg TID PO Last administered on 08/10/16 21:11 ; Admin Dose 5 MG; Start 08/10/16 at 21:00 Oxycodone HCl (Roxicodone) 5 mg Q6 PRN PO PAIN; Start 08/10/16 at 17:00 Prednisone (Prednisone) 20 mg BID PO Last administered on 08/10/16 21:12; Admin Dose 20 MG; Start 08/10/16 at 21:00 Ropinirole HCl (Requip) 1 mg BID PO Last administered on 08/10/16 21:12; Admin Dose 1 MG; Start 08/10/16 at 21:00 Sertraline HCl (Zoloft) 200 mg DAILY PO ; Start 08/11/16 at 09:00 Zolpidem Tartrate (Ambien) 5 mg QHS PRN PO INSOMNIA Last administered on 22:53; Admin Dose 5 MG; Start 08/10/16 at 17:00 Pantoprazole (Protonix Tab) 40 mg DAILY@06 PO Last administered on 08/11/16 05: 37; Admin Dose 40 MG; Start 08/11/16 at 06:00 Salmeterol Xinafoate/ Fluticasone (Advair 250/50 Diskus) 1 inh BID INH Last administered on 5/31/17at 21:13; Admin Dose 1 INH; Start 08/10/16 at 21:00 Diphenhydramine HCl (Benadryl) 50 mg Q6 PRN PO ITCHING Last administered on 08/11 05:37; Admin Dose 50 MG; Start 08/10/16 at 17:30 Lorazepam (Ativan) 2 mg QHS PRN PO ANXIETY Last administered on 08/10/16 22:53 ; Admin Dose 2 MG; Start 08/10/16 at 17:30 Acetaminophen/ Hydrocodone Bitart 1 tab 1 tab Q6H PRN PO pain; Start 08/10/16 at 18:00 Vancomycin HCl (Vancocin) 250 ml @ 125 mls/hr Q12H IVPB Last administered on 06:27; Admin Dose 125 MLS/HR; Start 08/11/16 at 07:00 Morphine Sulfate (morphine) 2 mg Q4H PRN IV CHEST PAIN Last administered on 08/11 06:58; Admin Dose 2 MG; Start 08/10/16 at 21:00 Ondansetron HCl (Zofran Inj) 4 mg Q4H PRN IV NAUSEA AND/OR VOMITING Last administered on 08/11/16 07:02; Admin Dose 4 MG; Start 08/10/16 at 21:00 DAVE RAVI Aug 11, 2016 09:19
[2016-08-11] MEDS: LIDOCAINE 5% PATCH TD SCH (09:23)
[2016-08-11] MEDS: LIOTHYRONINE 5 MCG TAB PO SCH (09:23)
[2016-08-11] MEDS: MULTIVITAMINS THERAPEUTIC TAB PO SCH (09:24)
[2016-08-11] MEDS: LAMOTRIGINE 100 MG TAB PO SCH ×2 (09:24→21:37)
[2016-08-11] MEDS: DOCUSATE SODIUM 100 MG CAP PO SCH ×2 (09:24→21:37)
[2016-08-11] MEDS: LOSARTAN 50 MG TAB PO SCH ×2 (09:24→21:38)
[2016-08-11] MEDS: OXYBUTYNIN 5 MG TAB PO SCH ×3 (09:24→21:37)
[2016-08-11] MEDS: SERTRALINE 100 MG TAB PO SCH (09:24)
[2016-08-11] MEDS: predniSONE 20 MG TAB PO SCH ×2 (09:24→21:37)
[2016-08-11] MEDS: ROPINIROLE 1 MG TAB PO SCH ×2 (09:24→21:36)
[2016-08-11] MEDS: ISOSORBIDE MONONITRATE(SR)30 MG TAB PO SCH (09:25)
[2016-08-11] MEDS: SALMETEROL/FLUTICASONE 250/50 INHA INH SCH ×2 (09:29→21:38)
[2016-08-11] MEDS: LORAZEPAM 1 MG TAB PO PRN ×3 (09:29→23:43)
[2016-08-11] MEDS ORDERED: SOD CHLORIDE 0.9% 100 ML ONE (12:31)
[2016-08-11] MEDS ORDERED: IOHEXOL 300MG/ML 150 ML BTL ONE (12:31)
--- NOTE | 2016-08-11 16:59 | PN ---
Date/Time of Note Date/Time of Note DATE: 08/11/16 TIME: 16:56 Assessment/Plan VTE Prophylaxis VTE Prophylaxis Intervention: SCD's Lines/Catheters IV C[facility]ter Type (from [facility]): PICC Line Central line still needed: Yes (IV access) Urinary Cath still in place: No Assessment/Plan Assessment/Plan 1. Chest pain rule out acute coronary syndrome 2 Coronary artery disease status post cardiac cath 4 in the past. 3. Abnormal density on chest x-ray concerning for pulmonary mass 4. Hypertension suboptimal control 5. Hypothyroidism 6. Dyslipidemia 7. History of Parkinson's 8. 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 Bipolar depression with severe anxiety 10. 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 to schedule her appt at [facility] Subjective 24 Hr Interval Summary Free Text/Dictation s/p Cardiology consult,no plan for Any procedure, BP stable Exam/Review of Systems Vital Signs Vitals Vital Signs Date Time Temp Pulse Resp B/P Pulse Ox O2 Delivery O2 Flow Rate FiO2 08/11/16 16:38 72 08/11/16 16:02 97.6 18 122/64 100 08/10/16 16:00 Room Air 08/10/16 14:38 3.0 Intake and Output 08/10/16 08/10/16 08/11/16 15:00 23:00 07:00 Intake Total 1110 ml 150 ml Balance 1110 ml 150 ml Exam Constitutional: alert, oriented Psych: other (tearful) Head: atraumatic, normocephalic Neck: No jvd Respiratory: clear to auscultation, No crackles/rales Cardiovascular: edema, regular rate and rhythm, systolic murmur (2/6 ROHITH) Gastrointestinal: soft, No non-tender Neurological: nl mental status, nl speech Results Result Diagram: 08/11/16 0400 08/11/16 0400 Results 24 hrs Laboratory Tests Test 08/10/16 20:17 08/11/16 03:00 08/11/16 04:00 Creatine Kinase 35 32 Creatine Kinase Index 1.5 1.5 Creatinine Kinase MB (Mass) 0.52 0.47 Troponin I < 0.012 < 0.012 Urine Color LT. YELLOW Urine Clarity CLEAR Urine pH 6.5 Urine Specific [place] 1.025 Urine Ketones NEGATIVE Urine Nitrite POSITIVE H Urine Bilirubin NEGATIVE Urine Urobilinogen 0.2 E.U./dL Urine Leukocyte Esterase NEGATIVE Urine Microscopic RBC 2-5 Urine Microscopic WBC 0-2 Urine Squamous Epithelial Cells OCCASIONAL Urine Bacteria MANY Urine Hemoglobin NEGATIVE Urine Glucose NEGATIVE Urine Total Protein NEGATIVE White Blood Count 8.3 Red Blood Count 3.15 L Hemoglobin 9.4 L Hematocrit 29.8 L Mean Corpuscular Volume 94.6 Mean Corpuscular Hemoglobin 29.8 Mean Corpuscular Hemoglobin Concent 31.5 L Red Cell Distribution Width 14.4 Platelet Count 218 Mean Platelet Volume 10.3 Neutrophils % 77.7 H Lymphocytes % 14.9 L Monocytes % 6.4 Eosinophils % 0.2 Basophils % 0.2 Nucleated Red Blood Cells % 0.0 Neutrophils # 6.5 Lymphocytes # 1.2 Monocytes # 0.5 Eosinophils # 0.0 Basophils # 0.0 Nucleated Red Blood Cells # 0.0 Prothrombin Time 12.8 Prothrombin Time Ratio 1.0 INR International Normalized Ratio 0.96 Activated Partial Thromboplast Time 30.1 Sodium Level 136 Potassium Level 4.4 Chloride Level 105 # Carbon Dioxide Level 28 Anion Gap 7 L Blood Urea Nitrogen 17 Creatinine 0.69 Glucose Level 132 Hemoglobin A1c 5.2 Calcium Level 8.8 Magnesium Level 2.0 Iron Level 49 Total Iron Binding Capacity 318 Percent Iron Saturation 15 L Total Bilirubin 0.1 L Direct Bilirubin 0.00 Indirect Bilirubin 0.1 Aspartate Amino Transf (AST/SGOT) 31 Alanine Aminotransferase (ALT/SGPT) 56 Alkaline Phosphatase 56 Total Protein 5.5 L Albumin 3.5 Triglycerides Level 73 Cholesterol Level 160 LDL Cholesterol, Calculated 72 HDL Cholesterol 73 Cholesterol/HDL Ratio 2.1 Vitamin B12 Level 179 L Folate 6.7 Thyroid Stimulating Hormone (TSH) 1.440 Medications Medications Current Medications Acetaminophen (Tylenol Tab) 650 mg Q4 PRN PO PAIN AND OR ELEVATED TEMP; Start 08/10/16 at 17:00 Atorvastatin Calcium (Lipitor) 20 mg QHS PO Last administered on 08/10/16 21: 12; Admin Dose 20 MG; Start 08/10/16 at 21:00 Carvedilol (Coreg) 3.125 mg BID PO Last administered on 08/11/16 09:24; Admin Dose 3.125 MG; Start 08/10/16 at 21:00 Docusate Sodium (Colace) 100 mg BID PO Last administered on 08/11/16 09:24; Admin Dose 100 MG; Start 08/10/16 at 21:00 Lamotrigine (Lamictal) 200 mg BID PO Last administered on 08/11/16 09:24; Admin Dose 200 MG; Start 08/10/16 at 21:00 Lidocaine (Lidoderm) 1 patch DAILY TD Last administered on 08/11/16 09:23; Admin Dose 1 PATCH; Start 08/11/16 at 09:00 Liothyronine Sodium (Cytomel) 5 mcg DAILY PO Last administered on 08/11/16 09: 23; Admin Dose 5 MCG; Start 08/11/16 at 09:00 Lorazepam (Ativan) 1 mg TID PRN PO ANXIETY Last administered on 08/11/16 15:54 ; Admin Dose 1 MG; Start 08/10/16 at 17:00 Losartan Potassium (Cozaar) 50 mg BID PO Last administered on 08/11/16 09:24; Admin Dose 50 MG; Start 08/10/16 at 21:00 Magnesium Hydroxide (Milk Of Mag) 30 ml DAILY PRN PO HEARTBURN; Start 08/10/16 at 17:00 Methocarbamol (Robaxin) 500 mg Q8 PO Last administered on 08/11/16 15:55; Admin Dose 500 MG; Start 08/10/16 at 22:00 Multivitamins Therapeutic (Theragran) 1 tab DAILY PO Last administered on 09:24; Admin Dose 1 TAB; Start 08/11/16 at 09:00 Oxcarbazepine (Trileptal) 600 mg QHS PO Last administered on 08/10/16 21:11; Admin Dose 600 MG; Start 08/10/16 at 21:00 Oxybutynin Chloride (Ditropan) 5 mg TID PO Last administered on 08/11/16 15:54 ; Admin Dose 5 MG; Start 08/10/16 at 21:00 Oxycodone HCl (Roxicodone) 5 mg Q6 PRN PO PAIN; Start 08/10/16 at 17:00 Prednisone (Prednisone) 20 mg BID PO Last administered on 08/11/16 09:24; Admin Dose 20 MG; Start 08/10/16 at 21:00 Ropinirole HCl (Requip) 1 mg BID PO Last administered on 08/11/16 09:24; Admin Dose 1 MG; Start 08/10/16 at 21:00 Sertraline HCl (Zoloft) 200 mg DAILY PO Last administered on 08/11/16 09:24; Admin Dose 200 MG; Start 08/11/16 at 09:00 Zolpidem Tartrate (Ambien) 5 mg QHS PRN PO INSOMNIA Last administered on 22:53; Admin Dose 5 MG; Start 08/10/16 at 17:00 Pantoprazole (Protonix Tab) 40 mg DAILY@06 PO Last administered on 08/11/16 05: 37; Admin Dose 40 MG; Start 08/11/16 at 06:00 Salmeterol Xinafoate/ Fluticasone (Advair 250/50 Diskus) 1 inh BID INH Last administered on 08/11/16 09:29; Admin Dose 1 INH; Start 08/10/16 at 21:00 Diphenhydramine HCl (Benadryl) 50 mg Q6 PRN PO ITCHING Last administered on 08/11 05:37; Admin Dose 50 MG; Start 08/10/16 at 17:30 Lorazepam (Ativan) 2 mg QHS PRN PO ANXIETY Last administered on 08/10/16 22:53 ; Admin Dose 2 MG; Start 08/10/16 at 17:30 Acetaminophen/ Hydrocodone Bitart 1 tab 1 tab Q6H PRN PO pain; Start 08/10/16 at 18:00 Vancomycin HCl (Vancocin) 250 ml @ 125 mls/hr Q12H IVPB Last administered on 06:27; Admin Dose 125 MLS/HR; Start 08/11/16 at 07:00 Morphine Sulfate (morphine) 2 mg Q4H PRN IV CHEST PAIN Last administered on 08/11 11:34; Admin Dose 2 MG; Start 08/10/16 at 21:00 Ondansetron HCl (Zofran Inj) 4 mg Q4H PRN IV NAUSEA AND/OR VOMITING Last administered on 08/11/16 07:02; Admin Dose 4 MG; Start 08/10/16 at 21:00 Isosorbide Mononitrate (Imdur) 30 mg DAILY PO Last administered on 08/11/16t 09: 25; Admin Dose 30 MG; Start 08/11/16 at 09:00 Miscellaneous Information (*Rx Drug Level Order Reminder*) 1 ONCE ONCE XX ; Start 08/12/16 at 06:00; Stop 08/12/16 at 06:01 Furosemide (Lasix) 40 mg DAILY PO ; Start 08/11/16 at 18:00 YAW ANTHONY MD Aug 11, 2016 16:59
--- NOTE | 2016-08-11 17:19 | RADRPT ---
Echocardiogram Report Patient Name: ANTOINE BENSON Gender: Female Date: 1950 Study Date: 11-Aug-2016 Watch Train Inspector: David Plascencia [facility] Location: 5657 Ref. Physician: GARRICK BENDER Quality: Good Procedures: Transthoracic echocardiogram with complete 2D, M-Mode, and doppler examination. Indications: Chest Pain. 2D/M Mode Doppler Measurement Value Normal Ranges Measurement Value Normal Ranges LVIDd 2D 4.5 3.5 - 5.6 cm AV Peak Naman 1.5 m/sec LVIDs 2D 3.1 2.1 - 4.1 cm AV Peak PG 9.0 mmHg FS 2D 32.3 % AI Peak PG 52.0 mmHg LVPWd 2D 1.0 0.6 - 1.1 cm AI Peak Naman 3.6 m/sec IVSd 2D 1.0 0.6 - 1.1 cm AI PHT 753.0 msec IVS/LVPW 2D 0.9 LVOT Peak Naman 0.9 m/sec AoR Diam 2D 2.6 2.0 - 3.7 cm LVOT Peak PG 3.0 mmHg LA/Ao 2D 1 0 - 1 MV E Peak Naman 1.2 m/sec EDV 2D 92.3 cm3 MV A Peak Naman 0.9 m/sec ESV 2D 28.7 cm3 MV E/A 1.3 LA Dimen 2D 3.8 2.3 - 4.0 cm MV Decel Time 148 msec MV E/A 1.3 TR Peak Naman 4.4 m/sec TR Peak PG 78.0 mmHg RVSP 93.0 mmHg Findings Left Ventricle: Normal left ventricular cavity size. Normal left ventricular wall thickness. Mild left ventricular systolic dysfunction. Ejection fraction is visually estimated at 5560 %. Tissue Doppler/Mitral Doppler indices are consistent with pseudonormalization with mildly elevated left atrial pressure (Stage II diastolic dysfunction). Right Ventricle: Mild enlargement of right ventricle. Flattened septum in systole consistent with RV pressure overload. Left Atrium: There is severe enlargement of left atrium. Right Atrium: There is severe enlargement of right atrium. Mitral Valve: Mitral valve leaflets appear mildly thickened. Mild mitral annular calcification. Moderate mitral valve regurgitation. Aortic Valve: No hemodynamically significant aortic stenosis by doppler. Aortic cusps appear mildly calcified. Mild aortic valve regurgitation. Tricuspid Valve: Estimated peak PA systolic pressure 86 mmHg. There is severe tricuspid regurgitation. Pulmonic Valve: Normal pulmonic valve appearance. There is trace pulmonic regurgitation. Pericardium: Trivial pericardial effusion. Aorta: Normal aortic root. IVC: Dilated IVC with respiratory collapse consistent with elevated right atrial pressure. Conclusions 1.Normal left ventricular cavity size. Normal left ventricular wall thickness. Mild left ventricular systolic dysfunction. Ejection fraction is visually estimated at 55-60 %. Tissue Doppler/Mitral Doppler indices are consistent with pseudonormalization with mildly elevated left atrial pressure (Stage II diastolic dysfunction). 2.Mild enlargement of right ventricle. Flattened septum in systole consistent with RV pressure overload. 3.Moderate mitral valve regurgitation. 4.Severe tricuspid regurgitation. 5.Mild aortic valve regurgitation. 6.Severe biatrial enlargement. 7.Severe pulmonary HTN with estimated peak PA systolic pressure 86 mmHg based on RA pressure of 8 mmHg. Electronically Signed By: Asa Casas 11-Aug-2016 17:19:19 -0700 Patient Name: ANTOINE BENSON Study Date: 11-Aug-2016 [id number]
[2016-08-11] MEDS: FUROSEMIDE 40 MG TAB PO SCH (17:27)
--- NOTE | 2016-08-11 17:45 | RADRPT ---
PROCEDURE: CT Chest with contrast. CLINICAL INDICATION: Chest pain and possible lung mass. Autoimmune disease. possible right paratr acheal mass. TECHNIQUE: Spiral CT images through the chest during administration of 80 ccs of Isovue [address] material. Coronal and sagittal reformatted images were obtained from the axial source images. Im ages were reviewed on a high-resolution PACS workstation. The total exam CTDI equals 12.7 mGy and th e total exam DLP equals 455.07 mGy-cm. One or more of the following dose reduction techniques were u sed: automated exposure control, adjustment of the mA and/or kV according to patient size, or use of iterative reconstruction technique. COMPARISON: Chest x-ray from 08/10 FINDINGS: Dependent atelectasis of the. Scattered ground-glass opacities throughout the lung baker without d efinite focal infiltrate. Left PICC line is seen with tip in the superior vena cava. Cardiomegaly is seen. Aortic and slight coronary artery calcification. The pulmonary arteries are slightly promi nent in size. The study was not tailored for evaluation of pulmonary embolus. No definite hilar, me diastinal, or axillary adenopathy is seen. The prominent paratracheal soft tissues is due to ectati c vasculature. No paratracheal mass or adenopathy. Clips are seen from prior cholecystectomy. The visualized upper abdomen is otherwise unremarkable. Minimal degenerative change of the spine is see n. IMPRESSION: No paratracheal mass. Prominence of the paratracheal soft tissues is due to ectatic vasculature. N onspecific ground-glass opacities and slight bibasilar atelectasis. RPTAT: HLBE Physician Elliot Date Time Electronically viewed and signed by Chelsey Dove Physician on 08/11/2016 17:44 LE/
[2016-08-11] MEDS: OXCARBAZEPINE 300 MG TAB PO SCH (21:36)
[2016-08-11] MEDS: ATORVASTATIN 20 MG TAB PO SCH (21:37)
[2016-08-11] MEDS: ZOLPIDEM 5 MG TAB PO PRN (23:42)
[2016-08-12] VITALS (8 sets, daily range): BP systolic 119–160; BP diastolic 57–82; PULSE 58–81; RESP 18
[2016-08-12] MEDS ORDERED: VANCOMYCIN 1.25 GM in SOD CHLORIDE 0.9% 250 ML IVPB SCH ×2
[2016-08-12] MEDS: LEVOTHYROXINE 137 MCG TAB PO SCH (05:25)
[2016-08-12] MEDS: morphine 2 MG INJ IV PRN ×2 (05:25→09:43)
[2016-08-12] MEDS: PANTOPRAZOLE (EC) 40 MG TAB PO SCH (05:25)
[2016-08-12] MEDS: METHOCARBAMOL 500 MG TAB PO SCH ×2 (05:25→13:23)
[2016-08-12 07:33] LABS: ADD SCAN DIFF NO
[2016-08-12 07:38] LABS: BASOPHILS % 0.3 % (0.0-2.0); EOSINOPHILS % 0.5 % (0.0-7.0); HEMATOCRIT 30.2 % (37.0-47.0); HEMOGLOBIN 9.7 g/dl (12.0-16.0); LYMPHOCYTES # 1.1 10^3/ul (0.8-2.9); LYMPHOCYTES % 13.4 % (15.0-51.0); MEAN CORPUSCULAR HEMOGLOBIN 29.9 pg (29.0-33.0); MEAN CORPUSCULAR HGB CONC 32.1 g/dl (32.0-37.0); MEAN CORPUSCULAR VOLUME 93.2 fl (82.0-101.0); MEAN PLATELET VOLUME 10.3 fl (7.4-10.4); MONOCYTE # 0.6 10^3/ul (0.3-0.9); MONOCYTES % 7.2 % (0.0-11.0); NEUTROPHIL # 6.2 10^3/ul (1.6-7.5); NEUTROPHILS % 78.1 % (39.0-77.0); PLATELET COUNT 240 10^3/UL (140-415); RED BLOOD COUNT 3.24 10^6/ul (4.20-5.40); RED CELL DISTRIBUTION WIDTH 14.2 % (11.5-14.5); WHITE BLOOD COUNT 7.9 10^3/ul (4.8-10.8)
[2016-08-12] MEDS: ROPINIROLE 1 MG TAB PO SCH (08:10)
[2016-08-12] MEDS: LIOTHYRONINE 5 MCG TAB PO SCH (08:10)
[2016-08-12] MEDS: OXYBUTYNIN 5 MG TAB PO SCH ×2 (08:11→13:23)
[2016-08-12] MEDS: DOCUSATE SODIUM 100 MG CAP PO SCH (08:11)
[2016-08-12] MEDS: MULTIVITAMINS THERAPEUTIC TAB PO SCH (08:11)
[2016-08-12] MEDS: LAMOTRIGINE 100 MG TAB PO SCH (08:11)
[2016-08-12 08:12] LABS: CALCIUM 8.8 mg/dl (8.4-10.2); CREATININE 0.78 mg/dl (0.44-1.00); POTASSIUM 4.5 mmol/L (3.5-5.1)
[2016-08-12] MEDS: FUROSEMIDE 40 MG TAB PO SCH (08:12)
[2016-08-12] MEDS: ISOSORBIDE MONONITRATE(SR)30 MG TAB PO SCH (08:12)
[2016-08-12] MEDS: LOSARTAN 50 MG TAB PO SCH (08:12)
[2016-08-12] MEDS: SERTRALINE 100 MG TAB PO SCH (08:12)
[2016-08-12] MEDS: predniSONE 20 MG TAB PO SCH (08:12)
[2016-08-12] MEDS: LIDOCAINE 5% PATCH TD SCH (08:13)
[2016-08-12] MEDS: SALMETEROL/FLUTICASONE 250/50 INHA INH SCH (08:13)
[2016-08-12] MEDS: LORAZEPAM 1 MG TAB PO PRN (08:15)
[2016-08-12] MEDS: ONDANSETRON 4 MG INJ IV PRN (11:44)
--- NOTE | 2016-08-12 11:54 | CONS ---
Date/Time of Note Date/Time of Note DATE: 08/12/16 TIME: 11:51 Assessment/Plan Assessment/Plan Chief Complaint/Hosp Course Chest pain: Possibly cardiac but this is a chronic symptom which has been evaluated previously with 3 cardiac caths all showing nonobstructive CAD and "small vessel disease". No objective e/o ischemia such as EKG changes or trop elevation. She is now better after imdur so ?component of spasm. Severe Pulm HTN: PAP 88 on echo. Possibly contributing to above. Nonobstructive CAD: per report based on prior caths Chronic diastolic/valvular heart failure: mostly right sided COPD HTN IgG deficiency -continue imdur 30mg -continue ASA, statin -coreg, lisinopril -lasix 40mg PO daily, can also consider bumex as outpt for better bioavailability in setting of right heart failure, will defer to outpt manager learning Problems: Consultation Date/Type/Reason Admit Date/Time August 10, 2016 at 11:57 Initial Consult Date 08/11/16 Type of Consultation: Cardiology Referring Provider: GARRICK BENDER 24 HR Interval Summary Free Text/Dictation No further chest pain. Exam/Review of Systems Vital Signs Vitals Vital Signs Date Time Temp Pulse Resp B/P Pulse Ox O2 Delivery O2 Flow Rate FiO2 08/12/16 08:23 66 08/12/16 07:51 98.5 18 119/57 95 08/10/16 16:00 Room Air 08/10/16 14:38 3.0 Intake and Output 08/11/16 08/11/16 08/12/16 15:00 23:00 07:00 Intake Total 1000 ml 550.000 ml Balance 1000 ml 550.000 ml Exam Constitutional: alert, oriented Psych: no complaints Head: atraumatic, normocephalic Neck: jvd (12cm, distended EJ) Respiratory: clear to auscultation, No crackles/rales Cardiovascular: edema (1+), regular rate and rhythm Gastrointestinal: non-tender, soft Neurological: nl mental status, nl speech Results Result Diagram: 08/12/16 0704 08/12/16 0704 Results 24 hrs Laboratory Tests Test 08/11/16 18:10 08/12/16 07:04 Vancomycin Level Trough 16.4 White Blood Count 7.9 Red Blood Count 3.24 L Hemoglobin 9.7 L Hematocrit 30.2 L Mean Corpuscular Volume 93.2 Mean Corpuscular Hemoglobin 29.9 Mean Corpuscular Hemoglobin Concent 32.1 Red Cell Distribution Width 14.2 Platelet Count 240 Mean Platelet Volume 10.3 Neutrophils % 78.1 H Lymphocytes % 13.4 L Monocytes % 7.2 Eosinophils % 0.5 Basophils % 0.3 Nucleated Red Blood Cells % 0.0 Neutrophils # 6.2 Lymphocytes # 1.1 Monocytes # 0.6 Eosinophils # 0.0 Basophils # 0.0 Nucleated Red Blood Cells # 0.0 Sodium Level 138 Potassium Level 4.5 Chloride Level 97 Carbon Dioxide Level 31 Anion Gap 15 # Blood Urea Nitrogen 18 Creatinine 0.78 Glucose Level 109 Calcium Level 8.8 Medications Medications Current Medications Acetaminophen (Tylenol Tab) 650 mg Q4 PRN PO PAIN AND OR ELEVATED TEMP; Start 08/10/16 at 17:00 Atorvastatin Calcium (Lipitor) 20 mg QHS PO Last administered on 08/11/16 21:37 ; Admin Dose 20 MG; Start 08/10/16 at 21:00 Carvedilol (Coreg) 3.125 mg BID PO Last administered on 08/12/16 08:16; Admin Dose 3.125 MG; Start 08/10/16 at 21:00 Docusate Sodium (Colace) 100 mg BID PO Last administered on 08/12/16 08:11; Admin Dose 100 MG; Start 08/10/16 at 21:00 Lamotrigine (Lamictal) 200 mg BID PO Last administered on 08/12/16 08:11; Admin Dose 200 MG; Start 08/10/16 at 21:00 Lidocaine (Lidoderm) 1 patch DAILY TD Last administered on 08/11/16 09:23; Admin Dose 1 PATCH; Start 08/11/16 at 09:00 Liothyronine Sodium (Cytomel) 5 mcg DAILY PO Last administered on 08/12/16 08: 10; Admin Dose 5 MCG; Start 08/11/16 at 09:00 Lorazepam (Ativan) 1 mg TID PRN PO ANXIETY Last administered on 08/12/16 08:15 ; Admin Dose 1 MG; Start 08/10/16 at 17:00 Losartan Potassium (Cozaar) 50 mg BID PO Last administered on 08/12/16 08:12; Admin Dose 50 MG; Start 08/10/16 at 21:00 Magnesium Hydroxide (Milk Of Mag) 30 ml DAILY PRN PO HEARTBURN; Start 08/10/16 at 17:00 Methocarbamol (Robaxin) 500 mg Q8 PO Last administered on 08/12/16 05:25; Admin Dose 500 MG; Start 08/10/16 at 22:00 Multivitamins Therapeutic (Theragran) 1 tab DAILY PO Last administered on 08:11; Admin Dose 1 TAB; Start 08/11/16 at 09:00 Oxcarbazepine (Trileptal) 600 mg QHS PO Last administered on 08/11/16 21:36; Admin Dose 600 MG; Start 08/10/16 at 21:00 Oxybutynin Chloride (Ditropan) 5 mg TID PO Last administered on 08/12/16 08:11 ; Admin Dose 5 MG; Start 08/10/16 at 21:00 Oxycodone HCl (Roxicodone) 5 mg Q6 PRN PO PAIN; Start 08/10/16 at 17:00 Prednisone (Prednisone) 20 mg BID PO Last administered on 08/12/16 08:12; Admin Dose 20 MG; Start 08/10/16 at 21:00 Ropinirole HCl (Requip) 1 mg BID PO Last administered on 08/12/16 08:10; Admin Dose 1 MG; Start 08/10/16 at 21:00 Sertraline HCl (Zoloft) 200 mg DAILY PO Last administered on 08/12/16 08:12; Admin Dose 200 MG; Start 08/11/16 at 09:00 Zolpidem Tartrate (Ambien) 5 mg QHS PRN PO INSOMNIA Last administered on 23:42; Admin Dose 5 MG; Start 08/10/16 at 17:00 Pantoprazole (Protonix Tab) 40 mg DAILY@06 PO Last administered on 08/12/16 05: 25; Admin Dose 40 MG; Start 08/11/16 at 06:00 Salmeterol Xinafoate/ Fluticasone (Advair 250/50 Diskus) 1 inh BID INH Last administered on 08/12/16 08:13; Admin Dose 1 INH; Start 08/10/16 at 21:00 Diphenhydramine HCl (Benadryl) 50 mg Q6 PRN PO ITCHING Last administered on 08/11 23:42; Admin Dose 50 MG; Start 08/10/16 at 17:30 Lorazepam (Ativan) 2 mg QHS PRN PO ANXIETY Last administered on 08/11/16 23:43 ; Admin Dose 2 MG; Start 08/10/16 at 17:30 Acetaminophen/ Hydrocodone Bitart ([place] (7.5-325)) 1 tab Q6H PRN PO pain Last administered on 08/11/16 23:42; Admin Dose 1 TAB; Start 08/10/16 at 18:00 Morphine Sulfate (morphine) 2 mg Q4H PRN IV CHEST PAIN Last administered on 08/12 09:43; Admin Dose 2 MG; Start 08/10/16 at 21:00 Ondansetron HCl (Zofran Inj) 4 mg Q4H PRN IV NAUSEA AND/OR VOMITING Last administered on 08/12/16 11:44; Admin Dose 4 MG; Start 08/10/16 at 21:00 Isosorbide Mononitrate (Imdur) 30 mg DAILY PO Last administered on 08/12/16 08: 12; Admin Dose 30 MG; Start 08/11/16 at 09:00 Furosemide 40 mg 40 mg DAILY PO Last administered on 08/12/16 08:12; Admin Dose 40 MG; Start 08/11/16 at 18:00 Vancomycin HCl/ Sodium Chloride (Vancocin/NS) 250 ml @ 83.333 mls/ hr Q24H IVPB Last administered on 08/11/16 23:44; Admin Dose 83.333 MLS/HR; Start at 00:00 DAVE RAVI Aug 12, 2016 11:54
--- NOTE | 2016-08-12 12:12 | PDOCDIS ---
Discharge Instructions CONDITION Patient Condition: Good HOME CARE INSTRUCTIONS: Special Diet: CARDIAC ACTIVITY: Activity Restrictions: Slowly Increase Activity Rest between Activity Avoid heavy lifting Avoid Heavy Housework FOLLOW UP/APPOINTMENTS Appointments follow up with her own PMD and other specialist physician at [facility] YAW ANTHONY MD Aug 12, 2016 12:12
[2016-08-12] MEDS ORDERED: ISOS30TA5 PO (12:13)
--- NOTE | 2016-08-14 23:11 | DS ---
DATE OF ADMISSION: 08/10/2016 DATE OF DISCHARGE: 08/12/2016 FINAL DISCHARGE DIAGNOSES: 1. Acute on chronic stable angina. 2. Atypical chest pain secondary to acute on chronic stable angina. 3. Coronary artery disease, status post cardiac catheterization x4 in the past. 4. Hypertension. 5. Hypothyroidism. 6. Dyslipidemia. 7. History of Parkinson disease. 8. 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 9. Bipolar depression, bipolar disorder. 10. Severe anxiety. 11. Recent diagnosis of sepsis with bacteremia from [facility]. The patient is currently getting intr avenous vancomycin in the fdc facility. CONSULTATIONS DONE DURING THIS HOSPITALIZATION: Cardiology consult, Dr. Asa Casas. PROCEDURES PERFORMED DURING THIS HOSPITALIZATION: None. HOSPITAL COURSE: This is a 66-year-old female who has a past medical history of hypertension, hyper lipidemia, hypothyroidism, history of coronary artery disease, status post cardiac catheterization x 4 in the past, Parkinson disease, selective IgG deficiency getting a twice a week IgG infusions at [facility], bipolar disorder with severe anxiety, and falls, recently admitted at the [facility] for severe sepsis with bacteremia. She was discharged to a fdc facility with IV vancomycin through her PICC line to finish the course of IV vancomycin. The patient was brought in by paramedics from fdc facility to [facility] because of chest pain. She was admitted for atypical chest pain, possible acute on chronic stabl e angina, for which she was started on Imdur 30 mg p.o. daily. Her workup initially including seria l troponins, EKG negative. She was evaluated by cardiology consult, Dr. Casas, and recommended to have conservative management. She remained chest pain free and, after that, she is being discha rged back to her original fdc facility. DISPOSITION: To fdc facility. DISCHARGE CONDITION: Stable and improved compared to admission. DISCHARGE ACTIVITIES: As tolerated, slowly resume to the normal baseline activity. DISCHARGE DIET: Cardiac diet. DISCHARGE MEDICATIONS: As per medical reconciliation. DISCHARGE FOLLOWUP AND INSTRUCTIONS: 1. The patient is to follow up with her own primary care doctor through her insurance 1 to 2 weeks after discharge. 2. The patient has all of her physicians based at the [facility] [place] including a product marketing analyst, so she is advised to follow up over there. She has been explained about the discharge plan and follow up instructions. She understood and verbalized understanding. Total time spent in this patient's evaluation, making the discharge plans, communicating with the pa tient, and communicating with the nursing staff took more than 60 minutes. Dictated By: YAW ANTHONY MD, KP/NTS Conf#: [id number] DID#: [id number] CC: GARRICK BENDER MD;*EndCC*
== END 2016-08-12 14:42 ==
LOC: E/R 08:55 → MS4 11:57
PROVIDERS: ADMIT Family Medicine; ATTEND Family Medicine
DX: I25.118 Atherosclerotic heart disease of native coronary artery with other forms of angina pectoris (principal); I11.0 Hypertensive heart disease with heart failure; I50.32 Chronic diastolic (congestive) heart failure; J44.9 Chronic obstructive pulmonary disease, unspecified; E03.9 Hypothyroidism, unspecified; E78.5 Hyperlipidemia, unspecified; G20 Parkinson's disease; F32.9 Major depressive disorder, single episode, unspecified; F41.9 Anxiety disorder, unspecified; D80.3 Selective deficiency of immunoglobulin G [IgG] subclasses; Z88.2 Allergy status to sulfonamides; Z88.8 Allergy status to other drugs, medicaments and biological substances; Z91.048 Other nonmedicinal substance allergy status
CPT/HCPCS: 36415; 71010; 71260; 80048; 80053; 80061; 80076; 80202; 81001; 82550; 82553; 82607; 82746; 83036; 83540; 83735; 83880; 84443; 84484; 85025; 85610; 85730; 87081; 93005; 93306; 96365; 96366; 96374; 96375; 96376; 99285; G0378; J2270; J2405; J3370; J7040; J7050; J7512; Q9967

== ENCOUNTER 2017-07-14 19:38 | Inpatient (IN) | END 2017-07-20 15:57 | DRG 871 ==